=== PATIENT | male | born 1970 ===

== ENCOUNTER → 2017-05-27 | Outpatient (CLI) | payer OTHER | LOC: MHCPAIN 08:59 | DX: G89.29 Other chronic pain (principal); M50.323 Other cervical disc degeneration at C6-C7 level; M47.812 Spondylosis without myelopathy or radiculopathy, cervical region; F17.210 Nicotine dependence, cigarettes, uncomplicated | CPT/HCPCS: G0463 ==

== ENCOUNTER → 2017-06-25 | Outpatient (CLI) | payer OTHER | LOC: MHCPAIN 12:27 | DX: M50.323 Other cervical disc degeneration at C6-C7 level (principal) ==

== ENCOUNTER → 2017-07-01 | Outpatient (CLI) | payer OTHER | LOC: MHCPAIN 09:18 | DX: G89.29 Other chronic pain (principal); M50.322 Other cervical disc degeneration at C5-C6 level | CPT/HCPCS: G0463 ==

== ENCOUNTER → 2017-07-23 | Outpatient (CLI) | payer OTHER | LOC: MHCPAIN 09:14 | DX: M50.322 Other cervical disc degeneration at C5-C6 level (principal); M46.96 Unspecified inflammatory spondylopathy, lumbar region ==

== ENCOUNTER → 2017-07-28 | Outpatient (CLI) | payer OTHER | LOC: MHCPAIN 10:48 | DX: G89.29 Other chronic pain (principal); M50.90 Cervical disc disorder, unspecified, unspecified cervical region | CPT/HCPCS: G0463 ==

== ENCOUNTER → 2017-08-20 | Outpatient (CLI) | payer OTHER | LOC: MHCPAIN 07:33 | DX: M50.322 Other cervical disc degeneration at C5-C6 level (principal) | CPT/HCPCS: J1100; J2250; J3010 ==

== ENCOUNTER → 2017-10-20 | Outpatient (CLI) | payer OTHER | LOC: MHCPAIN 08:43 | DX: G89.29 Other chronic pain (principal); M50.90 Cervical disc disorder, unspecified, unspecified cervical region | CPT/HCPCS: G0463 ==